=== PATIENT | male | born 1975 | race Caucasian/White ===

== ENCOUNTER 2023-01-31 11:46 | Inpatient (IN) | payer OTHER, MEDICAID ==
[~2023-01-31] VITALS: Ht 152.4 cm; Wt 39.0 kg
[2023-01-31 11:46] VITALS: BP_SYST 86; PULSE 122; RESP 19; TEMP 97; O2SAT 93
[2023-01-31] MEDS ORDERED: BUDE6.9H INH (12:11)
[2023-01-31] MEDS ORDERED: TYLL650 GT (12:11)
[2023-01-31] MEDS ORDERED: LOVI40 SQ (12:11)
[2023-01-31] MEDS ORDERED: LACT1CAP94 GT (12:11)
[2023-01-31] MEDS ORDERED: SYN75 GT (12:11)
[2023-01-31] MEDS ORDERED: MONT-40 GT (12:11)
[2023-01-31] MEDS ORDERED: MELO-89 GT (12:11)
[2023-01-31] MEDS ORDERED: BACL20TA GT (12:11)
[2023-01-31] MEDS ORDERED: MULT-1193 PO (12:11)
[2023-01-31] MEDS ORDERED: CHLO4TAB36 PO (12:11)
[2023-01-31] MEDS ORDERED: FAMO20TA8 GT (12:11)
[2023-01-31] MEDS ORDERED: CARB200T GT (12:11)
[2023-01-31] MEDS ORDERED: IPRA4AER INH (12:11)
[2023-01-31] MEDS ORDERED: DOCU-144 GT (12:11)
[2023-01-31] MEDS ORDERED: NACL 0.9% 1,000 ML IV ONE (12:15)
[2023-01-31 12:30] LABS: BASOPHILS % (AUTO) 0.5 % (0.0-2.0); EOSINOPHILS # (AUTO) 0.1 K/uL (0.0-0.4); EOSINOPHILS % (AUTO) 0.7 % (0.0-4.0); HEMATOCRIT 39.2 % (36-54); HEMOGLOBIN 12.5 g/dL (14.0-18.0); LYMPHOCYTES # (AUTO) 1.9 K/uL (1.0-5.5); LYMPHOCYTES % (AUTO) 22.7 % (20.5-51.5); MEAN CORPUSCULAR HEMOGLOBIN 30 pg (27-31); MEAN CORPUSCULAR HGB CONC 32 % (32-36); MEAN CORPUSCULAR VOLUME 94 fL (79.0-98.0); MONOCYTES # (AUTO) 0.8 K/uL (0.0-1.0); MONOCYTES % (AUTO) 9.3 % (1.7-9.3); NEUTROPHILS # (AUTO) 5.6 K/uL (1.8-7.7); NEUTROPHILS % (AUTO) 66.8 % (40.0-70.0); PLATELET COUNT (AUTO) 325 K/uL (130-430); RED BLOOD CELL COUNT(AUTO) 4.19 MIL/uL (4.2-6.2); RED CELL DISTRIBUTION WIDTH 19.5 % (9.0-15.0); WHITE BLOOD COUNT (AUTO) 8.4 K/uL (4.8-10.8)
[2023-01-31 12:57] LABS: ANION GAP 7 (5-15); CALCIUM 9.5 mg/dL (8.4-11.0); CARBON DIOXIDE 30 mmol/L (23-29); CHLORIDE 106 mmol/L (98-107); CREATININE 0.32 mg/dL (0.55-1.30); GFR AFRICAN AMERICAN 380 mL/min (>90); GLUCOSE 109 mg/dL (74-106); POTASSIUM 3.7 mmol/L (3.5-5.1); SODIUM SERUM 143 mmol/L (136-145); UREA NITROGEN, BLOOD 24 mg/dL (8-21)
[2023-01-31 13:02] LABS: ALANINE AMINOTRANSFERASE 41 U/L (12-78); ALBUMIN 2.6 g/dL (3.4-4.8); ASPARTATE AMINOTRANSFERASE 19 U/L (10-37); CREATINE KINASE, TOTAL 14 U/L (39-308); TOTAL BILIRUBIN 0.3 mg/dL (0.0-1.0); TOTAL PROTEIN, SERUM 7.4 g/dL (6.4-8.3)
[2023-01-31 13:09] LABS: GFR NON AFRICAN-AMERICAN 314 mL/min (>90)
[2023-01-31 13:13] LABS: PROTHROMBIN TIME 10.2 SECS (9.5-12.5)
[2023-01-31 20:00] VITALS: BP_SYST 101; PULSE 110; RESP 18; TEMP 97.1; O2SAT 97
[2023-01-31 22:01] VITALS: BP_SYST 101; PULSE 110; RESP 18; TEMP 97.1; O2SAT 97
[2023-01-31 23:38] VITALS: BP_SYST 124; PULSE 95; RESP 18; TEMP 98; O2SAT 100
[2023-02-01] VITALS (8 sets, daily range): BP systolic 105–124; PULSE 111–116; RESP 17–20; TEMP 97.2–98.6; O2SAT 92–98
[2023-02-01] MEDS: D5/0.45 NS 1,000 ML IV SCH ×4 (07:59→20:07)
[2023-02-01] MEDS ORDERED: IPRATROPIUM/ALBUTEROL SULFATE 120 PUFFS/4 GM INH INH SCH (11:00)
[2023-02-01] MEDS ORDERED: ACETAMINOPHEN 650 MG/20.3 ML UDC GT PRN (11:00)
[2023-02-01] MEDS ORDERED: LACTOBAC GT SCH (11:00)
[2023-02-01] MEDS ORDERED: [UNRECOGNIZED DRUG - OTHER] GT SCH (11:00)
[2023-02-01] MEDS ORDERED: NON-FORMULARY MEDICATION (Multivitamin with Minerals (Hair, Skin and Nails) 1 EACH) PO SCH (11:00)
[2023-02-01 12:03] LABS: BASOPHILS % (AUTO) 0.5 % (0.0-2.0); EOSINOPHILS % (AUTO) 0.5 % (0.0-4.0); HEMATOCRIT 36.7 % (36-54); HEMOGLOBIN 11.6 g/dL (14.0-18.0); LYMPHOCYTES # (AUTO) 1.3 K/uL (1.0-5.5); LYMPHOCYTES % (AUTO) 20.2 % (20.5-51.5); MEAN CORPUSCULAR HEMOGLOBIN 30 pg (27-31); MEAN CORPUSCULAR HGB CONC 32 % (32-36); MEAN CORPUSCULAR VOLUME 94 fL (79.0-98.0); MONOCYTES # (AUTO) 0.6 K/uL (0.0-1.0); MONOCYTES % (AUTO) 8.5 % (1.7-9.3); NEUTROPHILS # (AUTO) 4.6 K/uL (1.8-7.7); NEUTROPHILS % (AUTO) 70.3 % (40.0-70.0); PLATELET COUNT (AUTO) 302 K/uL (130-430); RED CELL DISTRIBUTION WIDTH 19.5 % (9.0-15.0); WHITE BLOOD COUNT (AUTO) 6.6 K/uL (4.8-10.8)
[2023-02-01 12:57] LABS: CALCIUM 9.1 mg/dL (8.4-11.0); CREATININE 0.37 mg/dL (0.55-1.30); POTASSIUM 3.8 mmol/L (3.5-5.1)
[2023-02-01] MEDS ORDERED: IPRATROPIUM/ALBUTEROL SULFATE 3 ML AMPUL.NEB (DUONEB) INH PRN (14:45)
[2023-02-01] MEDS ORDERED: LEVOTHYROXINE SODIUM 0.075 MG TABLET GT ONE (15:00)
[2023-02-01] MEDS ORDERED: MONTELUKAST 10 MG TABLET GT ONE (15:00)
[2023-02-01] MEDS ORDERED: ENOXAPARIN SODIUM 40 MG/0.4 ML SYRINGE SQ ONE (15:00)
[2023-02-01] MEDS ORDERED: MELOXICAM 7.5 MG TABLET GT ONE (15:00)
[2023-02-01] MEDS ORDERED: FAMOTIDINE 20 MG TABLET GT ONE (15:00)
[2023-02-01] MEDS: BACLOFEN 10 MG TABLET GT SCH ×2 (15:35→21:46)
[2023-02-01] MEDS: MONTELUKAST 10 MG TABLET GT SCH (17:13)
[2023-02-01] MEDS: ALBUTEROL SULFATE 0.083% 2.5 MG/3 ML VIAL.NEB INH SCH (19:21)
[2023-02-01] MEDS: BUDESONIDE 0.5 MG/2 ML AMPUL.NEB INH SCH (19:31)
[2023-02-01] MEDS ORDERED: CHLORPHENIRAMINE MALEATE PO SCH (21:00)
[2023-02-01] MEDS ORDERED: BUDESONIDE/FORMOTEROL 80-4.5 mCg, 6.9 GM INHALER INH SCH (21:00)
[2023-02-02] VITALS (10 sets, daily range): BP systolic 108–118; PULSE 97–103; RESP 17–19; TEMP 97.2–98.2; O2SAT 94–98
[2023-02-02] MEDS: ALBUTEROL SULFATE 0.083% 2.5 MG/3 ML VIAL.NEB INH SCH ×4 (02:29→21:02)
[2023-02-02] MEDS: LEVOTHYROXINE SODIUM 0.075 MG TABLET GT SCH (05:49)
[2023-02-02] MEDS: D5/0.45 NS 1,000 ML IV SCH (05:49)
[2023-02-02] MEDS: BUDESONIDE 0.5 MG/2 ML AMPUL.NEB INH SCH ×2 (07:27→21:02)
[2023-02-02] MEDS: MULTIVITAMINS TAB 1 TABLET PO SCH (09:00)
[2023-02-02] MEDS: ENOXAPARIN SODIUM 40 MG/0.4 ML SYRINGE SQ SCH (09:00)
[2023-02-02] MEDS: BACLOFEN 10 MG TABLET GT SCH ×3 (09:00→20:38)
[2023-02-02] MEDS: MELOXICAM 7.5 MG TABLET GT SCH (09:00)
[2023-02-02] MEDS: FAMOTIDINE 20 MG TABLET GT SCH (09:00)
[2023-02-02] MEDS: LACTOBACILLUS RHAMNOSUS GG 1 CAP CAPSULE GT SCH (09:00)
[2023-02-02] MEDS ORDERED: fentaNYL CITRATE/PF 100 MCG/2 ML AMP ONE (11:17)
[2023-02-02] MEDS ORDERED: MIDAZOLAM HCL 5 MG/5 ML VIAL ONE (11:17)
[2023-02-02 17:28] LABS: APPEARANCE,SPUN,BODY FLUID CLEAR (CLEAR); BF APPEARANCE UNSPUN CLOUDY (CLEAR); SOURCE/TYPE ,BODY FLUID PLEURAL
[2023-02-02 17:29] LABS: BODY FLUID TOTAL VOLUME 4 mL; LYMPHOCYTES, BODY FLUID 10 %; NEUTROPHIL, BODY FLUID 90 %; RBC, BODY FLUID 1313 /uL; WBC, BODY FLUID 5900 /uL
[2023-02-02 17:30] LABS: BODY FLUID COLOR PINK (LT YELLOW)
[2023-02-02] MEDS: MONTELUKAST 10 MG TABLET GT SCH (17:35)
[2023-02-02] MEDS ORDERED: DIPHENHYDRAMINE INJ 50 MG/ML VIAL ONE (18:18)
[2023-02-03] VITALS (9 sets, daily range): BP systolic 93–112; PULSE 98–120; RESP 16–20; TEMP 96.6–99; O2SAT 0–99
[2023-02-03] MEDS ORDERED: ONDANSETRON HCL 4 MG/2 ML VIAL IVP PRN (02:45)
[2023-02-03] MEDS ORDERED: ONDANSETRON HCL 4 MG/2 ML VIAL ONE (03:05)
[2023-02-03] MEDS: ALBUTEROL SULFATE 0.083% 2.5 MG/3 ML VIAL.NEB INH SCH ×4 (03:35→20:14)
[2023-02-03] MEDS: LEVOTHYROXINE SODIUM 0.075 MG TABLET GT SCH (06:12)
[2023-02-03] MEDS: BUDESONIDE 0.5 MG/2 ML AMPUL.NEB INH SCH ×2 (07:20→20:15)
[2023-02-03] MEDS: LACTOBACILLUS RHAMNOSUS GG 1 CAP CAPSULE GT SCH (10:17)
[2023-02-03] MEDS: MULTIVITAMINS TAB 1 TABLET PO SCH (10:17)
[2023-02-03] MEDS: BACLOFEN 10 MG TABLET GT SCH ×3 (10:18→21:07)
[2023-02-03] MEDS: ENOXAPARIN SODIUM 40 MG/0.4 ML SYRINGE SQ SCH (10:19)
[2023-02-03] MEDS: FAMOTIDINE 20 MG TABLET GT SCH (10:27)
[2023-02-03] MEDS: MELOXICAM 7.5 MG TABLET GT SCH (10:27)
[2023-02-03 12:19] LABS: BASOPHILS % (AUTO) 0.6 % (0.0-2.0); EOSINOPHILS % (AUTO) 0.3 % (0.0-4.0); HEMATOCRIT 38.8 % (36-54); HEMOGLOBIN 12.1 g/dL (14.0-18.0); LYMPHOCYTES % (AUTO) 18.2 % (20.5-51.5); MEAN CORPUSCULAR HEMOGLOBIN 29 pg (27-31); MEAN CORPUSCULAR HGB CONC 31 % (32-36); MEAN CORPUSCULAR VOLUME 94 fL (79.0-98.0); MONOCYTES # (AUTO) 0.8 K/uL (0.0-1.0); MONOCYTES % (AUTO) 14.2 % (1.7-9.3); NEUTROPHILS # (AUTO) 3.7 K/uL (1.8-7.7); NEUTROPHILS % (AUTO) 66.7 % (40.0-70.0); PLATELET COUNT (AUTO) 231 K/uL (130-430); RED BLOOD CELL COUNT(AUTO) 4.13 MIL/uL (4.2-6.2); RED CELL DISTRIBUTION WIDTH 18.4 % (9.0-15.0); WHITE BLOOD COUNT (AUTO) 5.5 K/uL (4.8-10.8)
[2023-02-03] MEDS: PIPERACILLIN/TAZO 3.375/DEX-IS 50 ML IV SCH ×3 (12:28→23:58)
[2023-02-03 12:39] LABS: ALBUMIN 2.4 g/dL (3.4-4.8); CALCIUM 8.9 mg/dL (8.4-11.0); CREATININE 0.28 mg/dL (0.55-1.30); POTASSIUM 3.9 mmol/L (3.5-5.1); TOTAL BILIRUBIN 0.4 mg/dL (0.0-1.0); TOTAL PROTEIN, SERUM 6.8 g/dL (6.4-8.3)
[2023-02-03] MEDS: MONTELUKAST 10 MG TABLET GT SCH (17:35)
[2023-02-04] VITALS (9 sets, daily range): BP systolic 102–133; PULSE 97–128; RESP 16–19; TEMP 97.6–98.9; O2SAT 96–98
[2023-02-04] MEDS: ALBUTEROL SULFATE 0.083% 2.5 MG/3 ML VIAL.NEB INH SCH ×4 (01:19→20:42)
[2023-02-04] MEDS: PIPERACILLIN/TAZO 3.375/DEX-IS 50 ML IV SCH ×4 (05:39→23:46)
[2023-02-04] MEDS: LEVOTHYROXINE SODIUM 0.075 MG TABLET GT SCH (06:10)
[2023-02-04] MEDS: BUDESONIDE 0.5 MG/2 ML AMPUL.NEB INH SCH ×2 (07:00→20:42)
[2023-02-04] MEDS: MELOXICAM 7.5 MG TABLET GT SCH (09:10)
[2023-02-04] MEDS: LACTOBACILLUS RHAMNOSUS GG 1 CAP CAPSULE GT SCH (09:10)
[2023-02-04] MEDS: MULTIVITAMINS TAB 1 TABLET PO SCH (09:10)
[2023-02-04] MEDS: FAMOTIDINE 20 MG TABLET GT SCH (09:10)
[2023-02-04] MEDS: ENOXAPARIN SODIUM 40 MG/0.4 ML SYRINGE SQ SCH (09:11)
[2023-02-04] MEDS: BACLOFEN 10 MG TABLET GT SCH ×3 (09:11→21:02)
[2023-02-04] MEDS: MONTELUKAST 10 MG TABLET GT SCH (18:05)
[2023-02-04] MEDS: ACETAMINOPHEN 650 MG/20.3 ML UDC GT PRN (21:02)
[2023-02-05] VITALS (11 sets, daily range): BP systolic 113–142; PULSE 98–115; RESP 17–20; TEMP 96.2–98.5; O2SAT 94–100
[2023-02-05] MEDS: ALBUTEROL SULFATE 0.083% 2.5 MG/3 ML VIAL.NEB INH SCH ×4 (01:14→19:53)
[2023-02-05] MEDS: PIPERACILLIN/TAZO 3.375/DEX-IS 50 ML IV SCH ×3 (05:48→17:34)
[2023-02-05] MEDS: LEVOTHYROXINE SODIUM 0.075 MG TABLET GT SCH (06:39)
[2023-02-05] MEDS: ACETAMINOPHEN 650 MG/20.3 ML UDC GT PRN (06:39)
[2023-02-05] MEDS: BUDESONIDE 0.5 MG/2 ML AMPUL.NEB INH SCH ×2 (07:19→19:53)
[2023-02-05] MEDS: LACTOBACILLUS RHAMNOSUS GG 1 CAP CAPSULE GT SCH (09:15)
[2023-02-05] MEDS: BACLOFEN 10 MG TABLET GT SCH ×3 (09:15→21:01)
[2023-02-05] MEDS: MULTIVITAMINS TAB 1 TABLET PO SCH (09:15)
[2023-02-05] MEDS: FAMOTIDINE 20 MG TABLET GT SCH (09:15)
[2023-02-05] MEDS: MELOXICAM 7.5 MG TABLET GT SCH (09:15)
[2023-02-05] MEDS: ENOXAPARIN SODIUM 40 MG/0.4 ML SYRINGE SQ SCH (09:15)
[2023-02-05 11:20] LABS: EOSINOPHILS # (AUTO) 0.1 K/uL (0.0-0.4); EOSINOPHILS % (AUTO) 2.7 % (0.0-4.0); HEMOGLOBIN 11.2 g/dL (14.0-18.0); LYMPHOCYTES # (AUTO) 1.1 K/uL (1.0-5.5); MEAN CORPUSCULAR HEMOGLOBIN 29 pg (27-31); MEAN CORPUSCULAR HGB CONC 31 % (32-36); MEAN CORPUSCULAR VOLUME 94 fL (79.0-98.0); MONOCYTES # (AUTO) 0.6 K/uL (0.0-1.0); MONOCYTES % (AUTO) 12.1 % (1.7-9.3); NEUTROPHILS # (AUTO) 2.9 K/uL (1.8-7.7); NEUTROPHILS % (AUTO) 61.2 % (40.0-70.0); PLATELET COUNT (AUTO) 261 K/uL (130-430); RED BLOOD CELL COUNT(AUTO) 3.85 MIL/uL (4.2-6.2); RED CELL DISTRIBUTION WIDTH 18.7 % (9.0-15.0); WHITE BLOOD COUNT (AUTO) 4.7 K/uL (4.8-10.8)
[2023-02-05 11:58] LABS: ALBUMIN 2.5 g/dL (3.4-4.8); CALCIUM 9.5 mg/dL (8.4-11.0); CREATININE 0.43 mg/dL (0.55-1.30); POTASSIUM 3.4 mmol/L (3.5-5.1); TOTAL BILIRUBIN 0.2 mg/dL (0.0-1.0)
[2023-02-05] MEDS: MONTELUKAST 10 MG TABLET GT SCH (17:33)
[2023-02-06] VITALS (9 sets, daily range): BP systolic 95–120; PULSE 93–115; RESP 18–22; TEMP 96.9–98.1; O2SAT 93–99
[2023-02-06] MEDS: PIPERACILLIN/TAZO 3.375/DEX-IS 50 ML IV SCH ×4 (01:03→17:29)
[2023-02-06] MEDS: ALBUTEROL SULFATE 0.083% 2.5 MG/3 ML VIAL.NEB INH SCH ×4 (01:27→20:20)
[2023-02-06 04:50] LABS: ERYTHROCYTE SEDIMENTATION RATE 65 MM/HR (0-15)
[2023-02-06 05:00] LABS: BASOPHILS % (AUTO) 1.1 % (0.0-2.0); EOSINOPHILS # (AUTO) 0.2 K/uL (0.0-0.4); HEMATOCRIT 38.2 % (36-54); HEMOGLOBIN 11.9 g/dL (14.0-18.0); LYMPHOCYTES # (AUTO) 1.3 K/uL (1.0-5.5); LYMPHOCYTES % (AUTO) 28.8 % (20.5-51.5); MEAN CORPUSCULAR HEMOGLOBIN 29 pg (27-31); MEAN CORPUSCULAR HGB CONC 31 % (32-36); MEAN CORPUSCULAR VOLUME 93 fL (79.0-98.0); MONOCYTES # (AUTO) 0.6 K/uL (0.0-1.0); MONOCYTES % (AUTO) 12.8 % (1.7-9.3); NEUTROPHILS # (AUTO) 2.5 K/uL (1.8-7.7); NEUTROPHILS % (AUTO) 53.3 % (40.0-70.0); PLATELET COUNT (AUTO) 250 K/uL (130-430); RED CELL DISTRIBUTION WIDTH 18.7 % (9.0-15.0); WHITE BLOOD COUNT (AUTO) 4.6 K/uL (4.8-10.8)
[2023-02-06 05:08] LABS: CALCIUM 9.6 mg/dL (8.4-11.0); CREATININE 0.41 mg/dL (0.55-1.30); POTASSIUM 3.8 mmol/L (3.5-5.1)
[2023-02-06] MEDS: LEVOTHYROXINE SODIUM 0.075 MG TABLET GT SCH (06:41)
[2023-02-06] MEDS: BUDESONIDE 0.5 MG/2 ML AMPUL.NEB INH SCH ×2 (07:23→20:20)
[2023-02-06] MEDS: MELOXICAM 7.5 MG TABLET GT SCH (08:55)
[2023-02-06] MEDS: BACLOFEN 10 MG TABLET GT SCH ×2 (08:55→17:27)
[2023-02-06] MEDS: MULTIVITAMINS TAB 1 TABLET PO SCH (08:55)
[2023-02-06] MEDS: ENOXAPARIN SODIUM 40 MG/0.4 ML SYRINGE SQ SCH (08:56)
[2023-02-06] MEDS: LACTOBACILLUS RHAMNOSUS GG 1 CAP CAPSULE GT SCH (08:56)
[2023-02-06] MEDS: FAMOTIDINE 20 MG TABLET GT SCH (08:56)
[2023-02-06] MEDS ORDERED: NYSTATIN 15 GM TOPICAL POWDER TP ONE (16:15)
[2023-02-06] MEDS: MONTELUKAST 10 MG TABLET GT SCH (17:31)
[2023-02-06] MEDS ORDERED: NYSTATIN 15 GM TOPICAL POWDER TP SCH (21:00)
== END 2023-02-06 20:44 | DRG 199 ==
LOC: SED 11:46 → STU 15:49 → SMU 02-06 13:38 → STU 02-06 13:42
PROVIDERS: ADMIT Preventive Medicine Preventive Medicine/Occupational Environmental Medicine; ATTEND Preventive Medicine Preventive Medicine/Occupational Environmental Medicine
PROC: 0W9B30Z Drainage of Left Pleural Cavity with Drainage Device, Percutaneous Approach (ICD-10-PCS; principal; 2023-02-02)
DX: J93.83 Other pneumothorax (principal); E43 Unspecified severe protein-calorie malnutrition; G80.0 Spastic quadriplegic cerebral palsy; F73 Profound intellectual disabilities; J98.11 Atelectasis; J90 Pleural effusion, not elsewhere classified; Z68.1 Body mass index [BMI] 19.9 or less, adult; E86.0 Dehydration; G80.9 Cerebral palsy, unspecified; D64.9 Anemia, unspecified; D72.819 Decreased white blood cell count, unspecified; E03.9 Hypothyroidism, unspecified; Z20.822 Contact with and (suspected) exposure to COVID-19; K21.9 Gastro-esophageal reflux disease without esophagitis; R13.10 Dysphagia, unspecified; L40.9 Psoriasis, unspecified; M41.9 Scoliosis, unspecified; N20.0 Calculus of kidney; K59.09 Other constipation; Z93.1 Gastrostomy status
CPT/HCPCS: 36415; 71045; 71250-TC; 76376; 77012; 80048; 80053; 82550; 82947; 83605; 83880; 84157; 84484; 85025; 85379; 85384; 85610-TC; 85651-TC; 85730-TC; 87040; 87070-TC; 87081; 88108; 88305; 89051-TC; 89060-TC; 93005; 94640; 94760; 96360; 99285; C1729; C1769; G0378; J1200; J1650; J2250; J2405; J2543; J3010; J7626